=== PATIENT | female | born 1965 | race Caucasian/White ===

== ENCOUNTER 2022-04-26 10:17 | Day surgery (SDC) | payer OTHER ==
[~2022-04-26] VITALS: Ht 167.6 cm; Wt 127.3 kg
--- NOTE | ~2022-04-26 | OR ---
[facility] [address], [place] [address] Draft DATE OF OPERATION: 04/26/2022 SURGEON: Brett Peterson MD PREOPERATIVE DIAGNOSIS: History of tubular adenoma, right colon 2018. POSTOPERATIVE DIAGNOSES: 1. Scattered sigmoid diverticula. 2. Hyperplastic area of rectosigmoid (excised). 3. Adenomatous polyp, right colon (excised). PROCEDURE: Total colonoscopy to cecum with cold snare polypectomy x1 and cold morcellation polypectomy x1. ANESTHESIA: Intravenous sedation; fentanyl 100 mcg and Versed 10 mg. INDICATION: This 56-year-old white woman is a patient of Dr. Ching and well known to me from the past having undergone colonoscopy in 2018, at which time she was found to have a tubular adenoma of the right colon. She is here for surveillance colonoscopy. She has no symptoms of bleeding, diarrhea or constipation. She has no family history of colon cancer. She understands the risk of bleeding, infection, perforation, and other unforeseen complications related to colonoscopy and wished to proceed. FINDINGS: The prep was good. Complete colonoscopy was undertaken to the cecum without question. She had a small adenomatous polyp in the distal ascending colon which was excised with combination of techniques, dominantly cold snare technique. There was another area of probable mucosal hypertrophy in the rectosigmoid, which was excised with cold morcellation technique. She had a few scattered diverticula of the sigmoid. There were no other findings of concern. DESCRIPTION OF PROCEDURE: The patient was brought to the endoscopy suite and placed in the lateral decubitus position, given intravenous sedation to the point of slurred speech and nystagmus. Digital rectal examination was normal. PATIENT NAME: JOSHUA UMAÑA OPERATIVE REPORT DATE OF : 69 REPORT #: [id number] PHYSICIAN: BRETT PETERSON MD PCP: CATHY CHING MD REPORT IS CONFIDENTIAL AND NOT TO BE RELEASED WITHOUT AUTHORIZATION [facility] [address], [place] [address] Draft An Olympus video colonoscope was passed in the rectum and manipulated throughout the colon noting diverticula of the sigmoid. The scope was ultimately advanced to the right colon with visualization of the cecum. The scope was withdrawn from that point and examination undertaken. In the distal ascending colon, there was a small adenomatous appearing polyp, this was excised with cold snare technique and additional excision of the base of the polyp with cold morcellation technique. Specimen was passed for pathology. The scope was further withdrawn and at approximately the rectosigmoid, an area of mucosal hypertrophy, uncertain if truly adenomatous was noted, this was excised with cold morcellation technique. The rectum was found to be normal including retroflexed view. The scope was removed and the patient was taken to the recovery room in good condition. CONCLUDING DIAGNOSES: 1. Polyps x1, possibly 2. 2. Minimal diverticula of sigmoid. PLAN: Recommend high-fiber diet. Also repeat colonoscopy in 3-5 years, sooner if clinically indicated. She will return to the ongoing care of Dr. Ching. MD EMETERIO Trevino/BETH /[id number] cc: Dr. Ching. Copies: ~ PATIENT NAME: CHASIDYJOSHUA YONATAN OPERATIVE REPORT DATE OF : 69 REPORT #: [id number] PHYSICIAN: BRETT PETERSON MD PCP: CATHY CHING MD REPORT IS CONFIDENTIAL AND NOT TO BE RELEASED WITHOUT AUTHORIZATION
[~2022-04-26 10:17] MED LIST: DIVALPROEX SOD500 M1 PO; ESCITALOPRAM OX20 MG PO; LITHIUM CARBON450 MG PO; LOSARTAN POTASS50 MG PO; MOTRIN IB200 MG PO
--- NOTE | 2022-04-26 12:11 | NUR ---
04/26/22 1211 Demetria Gaston 1205-PATIENT ARRIVED TO PACU ON 2L NC RR EVEN. PATIENT AWAKE DENIES PAIN OR NAUSEA. ABDOMEN SOFT. IVF INFUSING. PATIENT DOZES TO SLEEP.
--- NOTE | 2022-04-28 13:42 | PATH ---
[facility] [address] [place], [place] [address] Signed SPECIMEN(S): A ASCENDING COLON POLYP SPECIMEN(S): B SIGMOID/RECTUM BIOPSY SPECIMEN SOURCE: A. ASCENDING COLON POLYP B. SIGMOID/RECTUM BIOPSY CLINICAL HISTORY: History of polyps. Postop diagnosis: Diverticulosis. FINAL PATHOLOGIC DIAGNOSIS: A. Ascending/right colon polyp, polypectomy: - Tubular adenoma. - Negative for high-grade dysplasia and malignancy. B. Sigmoid/rectum, biopsies: - Reactive colonic mucosa with some submucosal hemorrhage and ulceration. - Negative for acute inflammation, granulomata, and microscopic colitis. DF:enedeliac:C2NR MICROSCOPIC EXAMINATION: Histologic sections of all submitted blocks are examined by light microscopy. These findings, together with the gross examination, support the pathologic diagnosis. GROSS DESCRIPTION: Two specimens are received in two containers, labeled "AD." A. The specimen, labeled "AD, 1," and designated on the requisition "ascending/right polypectomy," is received in formalin and consists of three schmid soft tissue fragments that measure 0.3 up to 0.4 cm in greatest dimension. The specimen is entirely submitted in cassette (A1). B. The specimen, labeled "AD, 2," and designated on the requisition "sigmoid rectum biopsy," is received in formalin and consists of three schmid soft tissue fragments that measure 0.2 up to 0.7 cm in greatest dimension. The specimen is entirely submitted in cassette (B1). AI (under the direct supervision of a pathologist) The Gross Description was prepared using a voice recognition system. The report was reviewed for accuracy; however, sound-alike word errors, addition and/or deletions may occur. If there is any question about this report, please contact Client Services. PERFORMING LABORATORY: PATIENT NAME: JOSHUA UMAÑA PATHOLOGY DATE OF : 69 REPORT #: [id number] PHYSICIAN: URSULA PATHOLOGY PCP: CATHY CHING MD REPORT IS CONFIDENTIAL AND NOT TO BE RELEASED WITHOUT AUTHORIZATION [facility] [address] [place], [place] [address] Signed The technical component was performed by [facility] [employer], [address] [place] [address] (CLIA# [id number]). Professional interpretation was performed by [facility], [facility], [address] [place] [id number] (CLIA#: [id number]) Diagnostician: Guicho Cervantes DO Pathologist Electronically Signed 04/28/2022 Copies: ~ PATIENT NAME: JOSHUA UMAÑA PATHOLOGY DATE OF : 69 REPORT #: [id number] PHYSICIAN: URSULA PATHOLOGY PCP: CATHY CHING MD REPORT IS CONFIDENTIAL AND NOT TO BE RELEASED WITHOUT AUTHORIZATION
== END 2022-04-26 13:05 | disposition home or self-care (01) ==
LOC: DS 10:17 → OPS 10:17 → DS 14:00
PROVIDERS: ATTEND Surgery
PROC: 0DBN8ZZ Excision of Sigmoid Colon, Via Natural or Artificial Opening Endoscopic (ICD-10-PCS; 2022-04-26)
PROC: 0DBK8ZZ Excision of Ascending Colon, Via Natural or Artificial Opening Endoscopic (ICD-10-PCS; principal; 2022-04-26 11:15)
DX: Z12.11 Encounter for screening for malignant neoplasm of colon (principal); Z86.010 Personal history of colon polyps; K57.30 Diverticulosis of large intestine without perforation or abscess without bleeding; E66.01 Morbid (severe) obesity due to excess calories; Z68.42 Body mass index [BMI] 45.0-49.9, adult; F31.9 Bipolar disorder, unspecified; Z90.49 Acquired absence of other specified parts of digestive tract; I10 Essential (primary) hypertension; Z88.5 Allergy status to narcotic agent; Z88.2 Allergy status to sulfonamides; D12.2 Benign neoplasm of ascending colon; K62.1 Rectal polyp
CPT/HCPCS: 99153; G0500; J2250; J3010; J7121